=== PATIENT | female | born 1965 | race Asian ===

== ENCOUNTER → 2016-07-30 | Outpatient (CLI) | payer BC ==
[~2016-07-30] MED LIST: MTR600X PO; OXYC5TAB PO; POLY IRON PO
[2016-07-30 14:28] LABS: BASO % 0.3 %; BASO ABS # 0.02 K/uL (0-0.2); COMPLETE YES; EOS % 2.3 %; IG% 0.2 %; LYMPH % 37.9 %; LYMPH ABS # 2.34 K/uL (1.2-3.4); MEAN CELL VOLUME 88.1 fL (80-100); MEAN CORPUSCULAR HEMOGLOBIN 30.6 pg (25-34); MEAN CORPUSCULAR HGB CONC 34.8 g/dl (32-36); MEAN PLATELET VOLUME 9.6 fL (7.4-10.4); MONO % 5.8 %; NEUT % 53.5 %; PLATELET COUNT 279 K/uL (130-400); RED BLOOD COUNT 4.77 M/uL (4.2-5.4); WHITE BLOOD COUNT 6.18 K/uL (4.8-10.8)
[2016-07-30 14:54] LABS: ALT/SGPT 40 U/L (12-78); BLOOD UREA NITROGEN 13 mg/dl (7-18); BUN/CREATININE RATIO 16.6 (10-20); CARBON DIOXIDE 28 mmol/L (21-32); CHLORIDE 105 mmol/L (98-107); CREATININE 0.76 mg/dl (0.60-1.20); GLUCOSE 95 mg/dl (70-99); POTASSIUM 4.2 mmol/L (3.5-5.1); SODIUM 143 mmol/L (136-145)
[2016-07-30 15:08] LABS: ALKALINE PHOSPHATASE 65 U/L (45-117); AST/SGOT 21 U/L (15-37)
== END | disposition home or self-care (01) ==
LOC: C.LABBC 12:35
PROVIDERS: ATTEND Family Medicine
DX: R53.81 Other malaise (principal); R07.89 Other chest pain; R42 Dizziness and giddiness

== ENCOUNTER → 2016-07-31 | Outpatient (CLI) | payer BC ==
[~2016-07-31] MED LIST changes: +OPTIRAY 320 IV PRN
--- NOTE | 2016-07-31 10:30 | DIAGNOSTIC IMAGING REPORT ---
CT ANGIOGRAM OF THE CHEST CLINICAL HISTORY: Chest pain and positive d-dimer COMPARISON STUDY: No previous studies for comparison. TECHNIQUE: Following the IV administration of 95 mL of Optiray-320, CT angiogram of the thorax was performed from the thoracic inlet to the lung bases utilizing the pulmonary embolus protocol. Images are reviewed in the axial, sagittal, and coronal planes. IV contrast was administered without complication. MIP imaging was performed. CT DOSE: 206.10 mGy.cm FINDINGS: No pathologically enlarged axillary mediastinal or hilar lymph nodes were visualized. There was no evidence of thoracic aortic dilatation. There were no pulmonary artery filling defects to indicate acute pulmonary embolism. No pleural effusions are visualized. There are by basilar dependent atelectatic changes. There is no lobar consolidation. IMPRESSION: 1. No acute intrathoracic findings 2. No evidence of acute pulmonary embolism 3. No evidence of focal pulmonary consolidation Electronically signed by: Brennan Coles M.D. 07/31/2016 10:29 AM Dictated Date/Time: 07/31/2016 10:25 AM
== END | disposition home or self-care (01) ==
LOC: C.CTS 09:30
PROVIDERS: ATTEND Family Medicine
DX: R07.89 Other chest pain (principal); R79.89 Other specified abnormal findings of blood chemistry